=== PATIENT | female | born 1980 | race Caucasian/White ===

== ENCOUNTER → 2017-06-13 | Outpatient (CLI) | payer BC ==
[2017-06-13 14:27] LABS: Basophils # (A) 0.1 k/uL (0-0.2); Basophils % (A) 1 %; CHCM 31.4; Eosinophils # (A) 0.2 k/uL (0-0.7); Eosinophils % (A) 3 %; HCT 41.5 % (34.0-46.0); HDW 2.11; HGB 13.2 gm/dL (11.4-16.0); Luc # (Auto) 0.11; Luc % (Auto) 1; Lymphocytes # (A) 2.9 k/uL (1.0-4.8); Lymphocytes % (A) 30 %; MCH 29.6 pg (25.0-35.0); MCHC 31.9 g/dL (31.0-37.0); MCV 92.8 fL (80.0-100.0); Mean Platelet Volume 7.8; Monocytes # (A) 0.4 k/uL (0-1.0); Monocytes % (A) 5 %; Neutrophils # (A) 5.9 k/uL (1.3-7.7); Neutrophils % (A) 62 %; RBC 4.47 m/uL (3.80-5.40); RDW 14.2 % (11.5-15.5); WBC 9.6 k/uL (3.8-10.6); WBC (Perox) 9.75
== END | disposition home or self-care (01) ==
LOC: LABPAT 14:04
PROVIDERS: ATTEND Obstetrics & Gynecology
DX: Z01.812 Encounter for preprocedural laboratory examination (principal); N92.0 Excessive and frequent menstruation with regular cycle; N93.8 Other specified abnormal uterine and vaginal bleeding
CPT/HCPCS: 36415; 85025

== ENCOUNTER 2020-08-18 17:10 | Emergency (ER) | payer BC ==
[2020-08-18] MEDS ORDERED: KETOROLAC 15 MG/ML 1 ML VIAL IVP STA (17:28)
[2020-08-18] MEDS ORDERED: SODIUM CHLORIDE 0.9% 1,000 ML IV STA (17:28)
[2020-08-18] MEDS ORDERED: ONDANSETRON 4 MG/2 ML VIAL IVP STA (17:28)
[2020-08-18 17:48] LABS: Appearance,Urine Clear (Clear); Bilirubin,Urine Negative (Negative); Blood,Urine Trace (Negative); Color,Urine Light Yellow; Glucose,Urine (UA) Negative (Negative); Ketones,Urine Negative (Negative); Leukocyte Esterase,Urine Negative (Negative); Mucus,Urine Rare /hpf; Nitrite,Urine Negative (Negative); PH, Urine 6.5 (5.0-8.0); Protein,Urine Negative (Negative); RBC,Urine 2 /hpf (0-5); Squamous Epithelial Cell,Urine 2 /hpf (0-4); Urobilinogen,Urine <2.0 mg/dL (<2.0); WBC,Urine <1 /hpf (0-5)
--- NOTE | 2020-08-18 17:57 | ED ---
Abdominal Pain HPI - General Source: patient, RN notes reviewed Mode of arrival: ambulatory Limitations: no limitations <Cory Knapp - Last Filed: 08/18/20 19:14> <Dawna Posada - Last Filed: 08/21/20 01:25> - General Chief Complaint: Abdominal Pain Stated Complaint: abd pain Time Seen by Provider: 08/18/20 17:21 - History of Present Illness Initial Comments: A she is a 40-year-old female the present emergency department complaining of abdominal pain. She noted that the pain has been constant since Monday and has relieved at all even with pain medication. She noted that once she gets a lump below her ribs laterally to the right that she can reduce. She notes that when the bump happens the pain increases but when it goes away the pain subsided slightly. She stated that she was shoveling snow on Monday did something wrong and then instantly felt excruciating pain in her belly. She noticed about an 8 out of 10 right now. She said that on yesterday it felt like her abdomen was filling up with fiery hot fluid. She did report a history of a cholecystectomy, and an umbilical hernia that she is supposed to follow-up with Dr. scott with on 09/10/2020. She noted that she has generalized abdominal pain that is more centrally located. She denied any change in bowel habits, except for stools becoming softer. She noted that there was no blood, black color. She stated that she was nauseous but has not vomited. Patient appeared to be in moderate pain in mild distress. She denied any chest pain shortness of breath headache vomiting lightheadedness dizziness fever fatigue chills Patient has history of uterine ablation, no longer has muscle cycles. (Cory Knapp) - Related Data Previous Rx's Medication Instructions Recorded Ibuprofen [Motrin] 800 mg PO Q6HR #60 tab 08/18/20 Allergies Allergy/AdvReac Type Severity Reaction Status Date / Time Penicillins Allergy Intermediate Unknown Verified 08/18/20 19:20 morphine Allergy Unknown Unknown Verified 08/18/20 19:20 [id number] Antimigraine Allergy Unknown Unknown Verified 08/18/20 19:20 Agents Review of Systems ROS Other: All systems not noted in ROS Statement are negative. <Cory Knapp - Last Filed: 08/18/20 19:14> ROS Other: All systems not noted in ROS Statement are negative. <Dawna Posada - Last Filed: 08/21/20 01:25> ROS Statement: Those systems with pertinent positive or pertinent negative responses have been documented in the HPI. Past Medical History Past Medical History: No Reported History Additional Past Medical History / Comment(s): "heavy vaginal bleeding" History of Any Multi-Drug Resistant Organisms: None Reported Past Surgical History: Adenoidectomy, Cholecystectomy, Orthopedic Surgery Additional Past Surgical History / Comment(s): julián knee surgery, repair of rt ankle achilles tendon x2,. EGD colonoscopy October 2013. pt stated after cholycystecomy liver enzymes were elevated "possible related to the meds that I was taking" Past Anesthesia/Blood Transfusion Reactions: No Reported Reaction Past Psychological History: No Psychological Hx Reported Smoking Status: Former smoker Past Alcohol Use History: Occasional Past Drug Use History: None Reported - Past Family History Mother Family Medical History: No Reported History <Cory Knapp - Last Filed: 08/18/20 19:14> General Exam Limitations: no limitations General appearance: alert, in no apparent distress Head exam: Present: atraumatic, normocephalic, normal inspection Eye exam: Present: normal appearance, PERRL, EOMI. Absent: scleral icterus, conjunctival injection, periorbital swelling ENT exam: Present: normal exam, mucous membranes moist Neck exam: Present: normal inspection. Absent: tenderness, meningismus, lymphadenopathy Respiratory exam: Present: normal lung sounds bilaterally. Absent: respiratory distress, wheezes, rales, rhonchi, stridor Cardiovascular Exam: Present: regular rate, normal rhythm, normal heart sounds. Absent: systolic murmur, diastolic murmur, rubs, gallop, clicks GI/Abdominal exam: Present: soft, tenderness (Generalized, mostly centrally located superior to the naval.), normal bowel sounds, hernia (Umbilical hernia per patient.). Absent: guarding, rebound, rigid Extremities exam: Present: normal inspection, full ROM, normal capillary refill. Absent: tenderness, pedal edema, joint swelling, calf tenderness Neurological exam: Present: alert, oriented X3, CN II-XII intact Psychiatric exam: Present: normal affect, normal mood Skin exam: Present: warm, dry, intact, normal color. Absent: rash <Knapp,Cory - Last Filed: 08/18/20 19:14> Course Vital Signs 08/18/20 08/18/20 08/18/20 17:13 18:56 19:29 Temperature 98.6 F 97.9 F 97.9 F Pulse Rate 106 H 64 62 Respiratory 22 16 16 Rate Blood Pressure 155/109 126/91 111/76 O2 Sat by Pulse 99 100 100 Oximetry Medical Decision Making - Lab Data Result diagrams: 08/18/20 17:55 08/18/20 17:55 - Radiology Data Radiology results: report reviewed, image reviewed <Cory Knapp - Last Filed: 08/18/20 19:14> - Lab Data Result diagrams: 08/18/20 17:55 08/18/20 17:55 <Dawna Posada - Last Filed: 08/21/20 01:25> - Medical Decision Making 40-year-old female complaining of generalized abdominal pain. With history of umbilical hernia with a scheduled follow-up later in August. CT of abdomen ordered along with labs. CT unremarkable, left ovary cyst. Labs unremarkable. Case discussed with Dr. Posada, It was decided the patient discharged home with pain management, follow-up with [facility], follow-up with Gen. surgery as scheduled. (Cory Knapp) I was available for consultation in the emergency department. The history and physical exam were done by the midlevel provider. I was consulted for this patients care. I reviewed the case with the midlevel provider and based on their presentation of the patient, I agree with the assessment, medical decision making and plan of care as documented. Chart was dictated using [employer] dictation software. Attempts were made to correct any dictation errors however some typographical errors may persist. Patient was seen during a national state of emergency due to the Covid-19 pandemic. (Dawna Posada) - Lab Data Lab Results 08/18/20 08/18/20 08/18/20 Range/Units 17:40 17:55 17:55 WBC 7.1 (3.8-10.6) k/uL RBC 4.89 (3.80-5.40) m/uL Hgb 15.2 (11.4-16.0) gm/dL Hct 45.4 (34.0-46.0) % MCV 92.8 (80.0-100.0) fL MCH 31.1 (25.0-35.0) pg MCHC 33.5 (31.0-37.0) g/dL RDW 12.5 (11.5-15.5) % Plt Count 231 (150-450) k/uL MPV 7.0 Neutrophils % 56 % Lymphocytes % 33 % Monocytes % 5 % Eosinophils % 2 % Basophils % 1 % Neutrophils # 4.0 (1.3-7.7) k/uL Lymphocytes # 2.4 (1.0-4.8) k/uL Monocytes # 0.3 (0-1.0) k/uL Eosinophils # 0.2 (0-0.7) k/uL Basophils # 0.1 (0-0.2) k/uL Sodium 139 (137-145) mmol/L Potassium 4.1 (3.5-5.1) mmol/L Chloride 105 (98-107) mmol/L Carbon Dioxide 24 (22-30) mmol/L Anion Gap 10 mmol/L BUN 16 (7-17) mg/dL Creatinine 0.82 (0.52-1.04) mg/dL Est GFR (CKD-EPI)AfAm >90 (>60 ml/min/1.73 sqM) Est GFR (CKD-EPI)NonAf 90 (>60 ml/min/1.73 sqM) Glucose 95 (74-99) mg/dL Plasma Lactic Acid [place] (0.7-2.0) mmol/L Calcium 9.9 (8.4-10.2) mg/dL Total Bilirubin 0.5 (0.2-1.3) mg/dL AST 29 (14-36) U/L ALT 33 (4-34) U/L Alkaline Phosphatase 37 L (38-126) U/L Total Protein 7.8 (6.3-8.2) g/dL Albumin 4.6 (3.5-5.0) g/dL Amylase 54 (30-110) U/L Lipase 67 (23-300) U/L Urine Color Light Yellow Urine Appearance Clear (Clear) Urine pH 6.5 (5.0-8.0) Ur Specific [place] 1.010 (1.001-1.035) Urine Protein Negative (Negative) Urine Glucose (UA) Negative (Negative) Urine Ketones Negative (Negative) Urine Blood Trace H (Negative) Urine Nitrite Negative (Negative) Urine Bilirubin Negative (Negative) Urine Urobilinogen <2.0 (<2.0) mg/dL Ur Leukocyte Esterase Negative (Negative) Urine RBC 2 (0-5) /hpf Urine WBC <1 (0-5) /hpf Ur Squamous Epith Cells 2 (0-4) /hpf Urine Mucus Rare H (None) /hpf 08/18/20 Range/Units 17:55 WBC (3.8-10.6) k/uL RBC (3.80-5.40) m/uL Hgb (11.4-16.0) gm/dL Hct (34.0-46.0) % MCV (80.0-100.0) fL MCH (25.0-35.0) pg MCHC (31.0-37.0) g/dL RDW (11.5-15.5) % Plt Count (150-450) k/uL MPV Neutrophils % % Lymphocytes % % Monocytes % % Eosinophils % % Basophils % % Neutrophils # (1.3-7.7) k/uL Lymphocytes # (1.0-4.8) k/uL Monocytes # (0-1.0) k/uL Eosinophils # (0-0.7) k/uL Basophils # (0-0.2) k/uL Sodium (137-145) mmol/L Potassium (3.5-5.1) mmol/L Chloride (98-107) mmol/L Carbon Dioxide (22-30) mmol/L Anion Gap mmol/L BUN (7-17) mg/dL Creatinine (0.52-1.04) mg/dL Est GFR (CKD-EPI)AfAm (>60 ml/min/1.73 sqM) Est GFR (CKD-EPI)NonAf (>60 ml/min/1.73 sqM) Glucose (74-99) mg/dL Plasma Lactic Acid [place] 1.2 (0.7-2.0) mmol/L Calcium (8.4-10.2) mg/dL Total Bilirubin (0.2-1.3) mg/dL AST (14-36) U/L ALT (4-34) U/L Alkaline Phosphatase (38-126) U/L Total Protein (6.3-8.2) g/dL Albumin (3.5-5.0) g/dL Amylase (30-110) U/L Lipase (23-300) U/L Urine Color Urine Appearance (Clear) Urine pH (5.0-8.0) Ur Specific [place] (1.001-1.035) Urine Protein (Negative) Urine Glucose (UA) (Negative) Urine Ketones (Negative) Urine Blood (Negative) Urine Nitrite (Negative) Urine Bilirubin (Negative) Urine Urobilinogen (<2.0) mg/dL Ur Leukocyte Esterase (Negative) Urine RBC (0-5) /hpf Urine WBC (0-5) /hpf Ur Squamous Epith Cells (0-4) /hpf Urine Mucus (None) /hpf - Radiology Data Large cyst on the left ovary is 1 cm increase in diameter compared to old exam. No evidence of a solid pelvic mass normal uterus. (Cory Knapp) Disposition Is patient prescribed a controlled substance at d/c from ED?: No Time of Disposition: 19:17 <Cory Knapp - Last Filed: 08/18/20 19:14> <Dawna Posada - Last Filed: 08/21/20 01:25> Clinical Impression: Ovarian cyst, Abdominal pain Disposition: HOME SELF-CARE Instructions (If sedation given, give patient instructions): Ovarian Cyst (ED), Abdominal Pain (ED) Additional Instructions: Please return to the Emergency Department if symptoms worsen or any other concerns. Follow-up with Gen. surgery as scheduled. Follow-up with [facility] for reevaluation of ovarian cyst. Take Motrin as prescribed, take with food to avoid upset stomach. Follow-up with primary care 1-2 days. Prescriptions: Ibuprofen [Motrin] 800 mg PO Q6HR #60 tab Referrals: Dada Ho MD [Primary Care Provider] - 1-2 days
[2020-08-18 18:06] LABS: Basophils # (A) 0.1 k/uL (0-0.2); Basophils % (A) 1 %; Eosinophils # (A) 0.2 k/uL (0-0.7); Eosinophils % (A) 2 %; HCT 45.4 % (34.0-46.0); HGB 15.2 gm/dL (11.4-16.0); Lymphocytes # (A) 2.4 k/uL (1.0-4.8); Lymphocytes % (A) 33 %; MCH 31.1 pg (25.0-35.0); MCHC 33.5 g/dL (31.0-37.0); MCV 92.8 fL (80.0-100.0); Monocytes # (A) 0.3 k/uL (0-1.0); Monocytes % (A) 5 %; Neutrophils % (A) 56 %; Platelet Count 231 k/uL (150-450); RBC 4.89 m/uL (3.80-5.40); RDW 12.5 % (11.5-15.5); WBC 7.1 k/uL (3.8-10.6)
[2020-08-18 18:16] LABS: ALT 33 U/L (4-34); AST 29 U/L (14-36); African American GFR (CKD) >90 (>60 ml/min/1.73 sqM); Albumin 4.6 g/dL (3.5-5.0); Alkaline Phosphatase 37 U/L (38-126); Amylase 54 U/L (30-110); Anion Gap 10 mmol/L; Blood Urea Nitrogen 16 mg/dL (7-17); Calcium 9.9 mg/dL (8.4-10.2); Carbon Dioxide 24 mmol/L (22-30); Chloride 105 mmol/L (98-107); Glucose 95 mg/dL (74-99); Lipase 67 U/L (23-300); Non-African American GFR(CKD) 90 (>60 ml/min/1.73 sqM); Potassium 4.1 mmol/L (3.5-5.1); Sodium 139 mmol/L (137-145); Total Bilirubin 0.5 mg/dL (0.2-1.3); Total Protein 7.8 g/dL (6.3-8.2)
--- NOTE | 2020-08-18 18:44 | CT ---
EXAMINATION TYPE: CT abdomen pelvis w con DATE OF EXAM: 08/18/2020 COMPARISON: 01/25/2016 HISTORY: generalized abdominal pain, periumbilical mass CT DLP: 487.4 mGycm Automated exposure control for dose reduction was used. CONTRAST: Performed with IV Contrast, patient injected with 100 mL of Isovue 300. Images obtained from the diaphragm to the floor the pelvis with IV contrast. The lung bases are clear. There is no pleural effusion. Heart size is normal. There is no pericardial effusion. There are clips from cholecystectomy. Liver is intact. Spleen is intact. There is impacted stomach. T here is no pancreatic mass. The bile ducts are not dilated. There is no adrenal mass. Kidneys show satisfactory contrast opacification. There is no hydronephrosi s. Delayed images show normal renal excretion. There is no retroperitoneal adenopathy. Ureters are no t dilated. Bladder distends smoothly. There is no inguinal hernia. There is 6 x 4 cm cyst on the left ovary. [place] stephanie is anteverted. There is no free fluid in the pelvis. Appendix is not definitely seen. There is no sign of thickened appendix. There is no mesenteric edema . Lumbar vertebra have normal alignment. Disc spaces are fairly normal. Bony pelvis is intact. Hip bc ints are intact. IMPRESSION: Large cyst on the left ovary is 1 cm increased in diameter compared to old exam. No evidence of a harlan id pelvic mass. Normal uterus. Appendix not seen. No sign of thickened appendix. No evidence of umbilical mass.
[2020-08-18 18:56] VITALS: RESP 16; TEMP 97.9
[2020-08-18 19:31] VITALS: BP 111/76; PULSE 62
== END 2020-08-18 19:31 | disposition home or self-care (01) ==
LOC: EC 17:10
DX: N83.202 Unspecified ovarian cyst, left side (principal); K42.9 Umbilical hernia without obstruction or gangrene; Z88.0 Allergy status to penicillin; Z88.5 Allergy status to narcotic agent; Z88.8 Allergy status to other drugs, medicaments and biological substances; Z90.49 Acquired absence of other specified parts of digestive tract; Z87.891 Personal history of nicotine dependence
CPT/HCPCS: 36415; 80053; 82150; 83605; 83690; 85025; 81001; 74177; 99284; 96374; 96375; 96361; J2405; J1885; Q9967

== ENCOUNTER → 2020-09-02 | Outpatient (CLI) | payer BC ==
--- NOTE | 2020-09-02 13:30 | MM ---
Reason for exam: screening (asymptomatic). Baseline mammogram. History: Took hormonal contraceptives for 6 years beginning at age 17. Physical Findings: Nurse did not find any significant physical abnormalities on exam. MG Screening Mammo w CAD Bilateral CC and MLO view(s) were taken. The breast tissue is heterogeneously dense. This may lower the sensitivity of mammography. There is no discrete abnormality. These results were verbally communicated with the patient and result sheet given to the patient on 09/02/20. ASSESSMENT: Negative, BI-RAD 1 RECOMMENDATION: Routine screening mammogram of both breasts in 1 year.
== END | disposition home or self-care (01) ==
LOC: RADMAMWWP 12:43
PROVIDERS: ATTEND Family Medicine
DX: Z12.31 Encounter for screening mammogram for malignant neoplasm of breast (principal)
CPT/HCPCS: 77067

== ENCOUNTER → 2022-11-11 | Outpatient (CLI) | payer BC ==
--- NOTE | 2022-11-14 06:59 | MM ---
Reason for Exam: Screening (asymptomatic). Last mammogram was performed 2 year(s) and 2 month(s) ago. Patient History: Menarche at age 14. First Full-Term at age 18. Hormonal Contraceptives for 6 years from age 17 until age 23. Risk Values: Daly 5 year model risk: 0.4%. NCI Lifetime model risk: 6.6%. Prior Study Comparison: 09/02/2020 Bilateral Screening Mammogram, [facility]. Tissue Density: The breast tissue is extremely dense which could obscure a lesion on mammography. Findings: Analyzed By CAD. Benign-appearing right axillary lymph nodes are present. There is no suspicious group of microcalcifications or new suspicious mass in either breast. Overall Assessment: Negative, BI-RAD 1 Management: Screening Mammogram of both breasts in 1 year. Some advise bilateral breast ultrasound surveillance in patients with background extremely dense tissue. Patient should continue monthly self-breast exams. A clinical breast exam by your physician is recommended on an annual basis. This exam should not preclude additional follow-up of suspicious palpable abnormalities. Note on Daly scores and lifetime risk: 1. A Daly score greater than 3% is considered moderate risk. If this is the case, consider specialist referral to assess eligibility for a risk reducing agent. 2. If overall lifetime risk for the development of breast cancer is 20% or higher, the patient may qualify for future screening with alternating mammogram and breast MRI. Electronically signed and approved by: Eddie Parker M.D.
== END | disposition home or self-care (01) ==
LOC: RADMAMWWP 07:20
PROVIDERS: ATTEND Obstetrics & Gynecology
DX: Z12.31 Encounter for screening mammogram for malignant neoplasm of breast (principal)
CPT/HCPCS: 77063; 77067

== ENCOUNTER → 2023-11-21 | Outpatient (CLI) | payer BC ==
--- NOTE | 2023-11-22 19:21 | MM ---
Reason for Exam: Screening (asymptomatic). Last mammogram was performed 1 year(s) and 1 month(s) ago. Patient History: Menarche at age 14. First Full-Term at age 18. Hormonal Contraceptives for 6 years from age 17 until age 23. Risk Values: Daly 5 year model risk: 0.5%. NCI Lifetime model risk: 6.5%. Prior Study Comparison: 09/02/2020 Bilateral Screening Mammogram, [facility]. 11/11/2022 Bilateral MG 3D screening mammo w/cad, [facility]. Tissue Density: The breasts are heterogeneously dense, which may obscure small masses. Findings: Analyzed By CAD. There is no suspicious group of microcalcifications or new suspicious mass in either breast. Overall Assessment: Negative, BI-RAD 1 Management: Screening Mammogram of both breasts in 1 year. . Patient should continue monthly self-breast exams. A clinical breast exam by your physician is recommended on an annual basis. This exam should not preclude additional follow-up of suspicious palpable abnormalities. Note on Daly scores and lifetime risk: 1. A Daly score greater than 3% is considered moderate risk. If this is the case, consider specialist referral to assess eligibility for a risk reducing agent. 2. If overall lifetime risk for the development of breast cancer is 20% or higher, the patient may qualify for future screening with alternating mammogram and breast MRI. Electronically signed and approved by: Marah Mix M.D. Radiologist
== END | disposition home or self-care (01) ==
LOC: RADMAMWWP 07:04
PROVIDERS: ATTEND Family Medicine
DX: Z12.31 Encounter for screening mammogram for malignant neoplasm of breast (principal)
CPT/HCPCS: 77063; 77067

== ENCOUNTER → 2023-12-14 | Outpatient (CLI) | payer BC ==
--- NOTE | 2023-12-18 11:20 | MR ---
EXAMINATION TYPE: MR slim/chrissy wo con DATE OF EXAM: 12/14/2023 COMPARISON: None HISTORY: Neck and lower back pain/stiffness, BUE/BLE radiculopathy. CONTRAST: None TECHNIQUE: Multiplanar multiecho imaging on a 3.0 Afsaneh magnet is performed through th e cervical spine. FINDINGS: The craniovertebral junction is normal. Vertebral body alignment is normal. C7-T1: No focal disc herniation or significant disc bulge is evident. No spinal canal stenosis or n eural foraminal stenosis is present. C6-7: Broad-based disc bulge has mild anterior thecal sac impression. No AP spinal canal stenosis is present. No cord contact is evident. There is moderate right and mild left foraminal narrowing from u ncovertebral joint hypertrophy.. C5-6: Broad-based disc bulge is present with moderate anterior thecal sac compression. Cord contact a nd mild cord flattening is present. No signal abnormality within the spinal cord is evident. Moderate right foraminal narrowing from uncovertebral joint hypertrophy is present. Left foramen is patent. D isc bulge has broadbase bulging and contact with the exiting nerve root should be considered bilatera lly. C4-5: No focal disc herniation or significant disc bulge is evident. No spinal canal stenosis is pre sent. Mild bilateral foraminal narrowing is present. C3-4: No focal disc herniation or significant disc bulge is evident. No spinal canal stenosis or jamie ral foraminal stenosis is present. C2-3: No focal disc herniation or significant disc bulge is evident. No spinal canal stenosis or jamie ral foraminal stenosis is present. IMPRESSION: 1. Broad-based disc bulge C5-6 with moderate anterior thecal sac compression cord contact and cord fl attening. Correlate for bilateral radicular symptoms. 2. Broad-based disc bulge with mild anterior thecal sac compression without cord contact C6-7. 3. Foraminal stenosis C4-5 through C6-7 discussed above slightly greater on the right. EXAMINATION TYPE: MR slim/chrissy wo con DATE OF EXAM: 12/14/2023 COMPARISON: None HISTORY: Neck and lower back pain/stiffness, BUE/BLE radiculopathy. CONTRAST: 0 mL intravenous Gadavist. TECHNIQUE: Multiplanar, multisequence images of the lumbar spine were acquired. FINDINGS: Are terminates at the L1 level. L5-S1: Broad disc bulge is present may has some contact with the left S1 exiting nerve root. No displ acement or compression is evident. No spinal canal stenosis is present No spinal canal stenosis. No foraminal stenosis. L4-L5: No significant disc bulge or disc herniation. No spinal canal stenosis. No foraminal stenosi s. Minimal ligamentum flavum laxity and facet hypertrophy is present.. L3-L4: No significant disc bulge or disc herniation. No spinal canal stenosis. No foraminal stenosi s. . L2-L3: No significant disc bulge or disc herniation. No spinal canal stenosis. No foraminal stenosi s. Mild facet hypertrophy and ligamentum flavum laxity is present. This has some left posterior late ral thecal sac impression.. L1-L2: No significant disc bulge or disc herniation. No spinal canal stenosis. No foraminal stenosi s. Without facet hypertrophy is present with posterior lateral thecal sac compression. No spinal can al stenosis.. T12-L1: No significant disc bulge or disc herniation. No spinal canal stenosis. No foraminal stenos is. . IMPRESSION: 1. Mild facet hypertrophy has some posterior lateral thecal sac compression L1-2, L2-3, L4-5. 2. Disc bulge at L5-S1 minimal anterior thecal sac contact. This comes in close approximation with th e left S1 nerve root without displacement or compression. Correlate with left S1 radicular symptoms.
== END | disposition home or self-care (01) ==
LOC: RADMRIMAIN 06:05
PROVIDERS: ATTEND Family Medicine
DX: M50.122 Cervical disc disorder at C5-C6 level with radiculopathy (principal); M47.26 Other spondylosis with radiculopathy, lumbar region; M51.17 Intervertebral disc disorders with radiculopathy, lumbosacral region; M99.71 Connective tissue and disc stenosis of intervertebral foramina of cervical region
CPT/HCPCS: 72141; 72148

== ENCOUNTER → 2025-02-11 | Outpatient (CLI) | payer BC ==
[2025-02-11 10:10] LABS: Basophils # (A) 0.05 X 10*3/uL (0.00-0.10); Basophils % (A) 0.8 %; Eosinophils # (A) 0.24 X 10*3/uL (0.04-0.35); Eosinophils % (A) 3.7 %; HCT 42.4 % (37.2-46.3); HGB 13.9 g/dL (12.0-15.0); Immature Grans, Automated 0.30 %; Lymphocytes # (A) 3.13 X 10*3/uL (0.90-5.00); Lymphocytes % (A) 47.9 %; MCH 30.0 pg (27.0-32.0); MCHC 32.8 g/dL (32.0-37.0); MCV 91.6 FL (80.0-97.0); Monocytes # (A) 0.50 X 10*3/uL (0.20-1.00); Monocytes % (A) 7.7 %; NRBC Per 100 WBC 0 X 10*3/uL (0.00-0.01); Neutrophils # (A) 2.59 X 10*3/uL (1.80-7.70); Neutrophils % (A) 39.6 %; Platelet Count 240 X 10*3/uL (140-440); RBC 4.63 X 10*6/uL (4.10-5.20); RDW 12.4 % (11.5-14.5); WBC 6.53 X 10*3/uL (4.50-10.00)
[2025-02-11 15:34] LABS: BUN/Creat Ratio 17.20 Ratio (12.00-20.00); Blood Urea Nitrogen 17.2 mg/dL (9.0-27.0); Chloride 106 mmol/L (96-109); Cholesterol 167.00 mg/dL (0.00-200.00); Glucose 96 mg/dL (70-110); HDL Cholesterol 97.70 mg/dL (40.00-60.00); LDL Cholesterol,Calculated 59.2 mg/dL (0.0-131.0); Potassium 4.6 mmol/L (3.5-5.5); Sodium 141 mmol/L (135-145); Triglycerides 50.60 mg/dL (0.00-149.00); VLDL Calculation 10.12 mg/dL (5.00-40.00)
[2025-02-11 15:35] LABS: ALT 23 U/L (8-44); AST 24 U/L (13-35); Albumin 4.2 g/dL (3.8-4.9); Albumin/Globulin Ratio 1.62 Ratio (1.60-3.17); Alkaline Phosphatase 54 U/L (41-126); Anion Gap 10.50 mmol/L (4.00-12.00); Calcium 9.0 mg/dL (8.7-10.3); Carbon Dioxide 24.5 mmol/L (21.6-31.8); Globulin 2.6 g/dL (1.6-3.3); T4, Free (Free Thyroxine) 1.16 ng/dL (0.80-1.80); Total Protein 6.8 g/dL (6.2-8.2)
== END | disposition home or self-care (01) ==
LOC: LABWHC1 08:06
PROVIDERS: ATTEND Physician Assistant
DX: Z00.00 Encounter for general adult medical examination without abnormal findings (principal); N91.2 Amenorrhea, unspecified; R63.5 Abnormal weight gain
CPT/HCPCS: 36415; 80053; 80061; 82671; 83036; 84403; 84439; 84443; 85025